=== PATIENT | female | born 1945 | race Caucasian/White ===

== ENCOUNTER 2021-05-08 09:53 | Emergency (ER) | payer MEDICARE ==
[2021-05-08 10:43] LABS: BASOPHIL 0.2 % (0-2); HGB 12.9 g/dl (12.5-16.0); LYMPHOCYTE 16.4 % (15-48); MCH 30.1 pg (25.0-31.0); MCHC 32.3 g/dL (32.0-36.0); MCV 93.5 fL (78.0-100.0); MONOCYTE 11.6 % (0-12); MPV 9.4 fL (6.0-9.5); NEUTROPHIL 69.2 % (41-80); NRBC 0; PLT 321 K/uL (150-400); RBC 4.28 M/uL (4.20-5.40); RDW 13.3 % (11.5-14.0); WBC 8.8 K/uL (4.0-10.5)
[2021-05-08 11:06] LABS: ALBUMIN 2.9 g/dL (3.4-5.0); BILIRUBIN - TOTAL 0.5 mg/dL (0.2-1.0); BUN/CREAT RATIO (CALC) 19.7 RATIO; CREATININE 0.71 mg/dL (0.51-0.95); GLOBULIN (CALCULATION) 4.1 g/dL; POTASSIUM 3.1 mmol/L (3.5-5.1)
== END 2021-05-08 14:50 | disposition home or self-care (01) ==
LOC: FER 09:53
PROVIDERS: Internal Medicine
DX: U07.1 COVID-19 (principal); E87.6 Hypokalemia; Z23 Encounter for immunization
CPT/HCPCS: 36415; 71045; 80053; 84145; 85025; M0243; Q0244; U0002